=== PATIENT | male | born 1995 | race Two or more races ===

== ENCOUNTER → 2024-10-31 | Emergency (ER) | payer OTHER ==
[~2024-10-31] VITALS: Ht 167.6 cm; Wt 83.9 kg
[~2024-10-31] MED LIST: KETOROLAC TROMETHAMINE 60 MG VIAL IM STA
== END | disposition left against medical advice (07) ==
LOC: ER 06:15
DX: S93.491A Sprain of other ligament of right ankle, initial encounter (principal); W01.0XXA Fall on same level from slipping, tripping and stumbling without subsequent striking against object, initial encounter; Y93.89 Activity, other specified; Y92.59 Other trade areas as the place of occurrence of the external cause